=== PATIENT | female | born 1970 | race Caucasian/White ===

== ENCOUNTER 2020-06-20 06:25 | Emergency (ER) | payer MEDICAID ==
[~2020-06-20] VITALS: Ht 154.9 cm; Wt 113.4 kg
[2020-06-20] MEDS ORDERED: SUBOXONE 8 MG-1 EAC1 SL (06:44)
[2020-06-20] MEDS ORDERED: ADDERALL 15 MG15 MG PO (06:45)
== END 2020-06-20 08:30 | disposition home or self-care (01) ==
LOC: ED 06:25
DX: J06.9 Acute upper respiratory infection, unspecified (principal); Z20.828 Contact with and (suspected) exposure to other viral communicable diseases; Z87.891 Personal history of nicotine dependence; Z79.899 Other long term (current) drug therapy
CPT/HCPCS: 71045; 81001; 99284-25; U0003